=== PATIENT | female | born 1955 | race Caucasian/White ===

== ENCOUNTER → 2018-08-15 | Outpatient (CLI) | payer BC ==
[2018-08-15 19:27] LABS: Albumin 4.8 g/dL (3.80-4.90); Anion Gap 7.2 mmol/L (4.00-12.00); Calcium 9.9 mg/dL (8.7-10.3); Carbon Dioxide 26.8 mmol/L (21.6-31.8); Globulin 2.4 g/dL (2.1-3.7); LDL Cholesterol,Calculated 137.2 mg/dL (0.0-131.0); Potassium 4.9 mmol/L (3.5-5.5); Total Bilirubin 0.8 mg/dL (0.2-1.2); Total Protein 7.2 g/dL (6.2-8.2); VLDL Calculation 25.8 mg/dL (5.00-40.00)
[2018-08-15 19:38] LABS: Thyroid Peroxidase Antibodies <28.0 U/mL (0.0-60.0)
== END | disposition home or self-care (01) ==
LOC: LABWHC1 12:36
PROVIDERS: ATTEND Nurse Practitioner Family
DX: I10 Essential (primary) hypertension (principal); R63.5 Abnormal weight gain; M19.90 Unspecified osteoarthritis, unspecified site; M25.50 Pain in unspecified joint; G89.29 Other chronic pain
CPT/HCPCS: 36415; 80053; 80061; 84432; 84443; 84445; 86376

== ENCOUNTER → 2018-09-21 | Outpatient (CLI) | payer BC ==
--- NOTE | 2018-09-29 13:43 | MM ---
Reason for exam: screening (asymptomatic). Last mammogram was performed 2 years and 8 months ago. History: Patient is postmenopausal. Family history of breast cancer in mother. MG Screening Mammo w CAD Bilateral CC and MLO view(s) were taken. Prior study comparison: February 02, 2016, bilateral MG screening mammo w CAD. August 29, 2008, bilateral digital screening mammogram. There are scattered fibroglandular densities. There is a new left axillary tail nodularity, likely a lymph node. there is a central asymmetric density in the left CC view. ASSESSMENT: Incomplete: need additional imaging evaluation, BI-RAD 0 RECOMMENDATION: Special view mammogram of the left breast.
== END | disposition home or self-care (01) ==
LOC: RADMAMWWP 11:43
PROVIDERS: ATTEND Nurse Practitioner Family
DX: Z12.31 Encounter for screening mammogram for malignant neoplasm of breast (principal); I10 Essential (primary) hypertension; R63.5 Abnormal weight gain; M19.90 Unspecified osteoarthritis, unspecified site; M25.50 Pain in unspecified joint; G89.29 Other chronic pain
CPT/HCPCS: 77067

== ENCOUNTER → 2018-09-26 | Outpatient (CLI) | payer BC ==
--- NOTE | 2018-09-29 13:49 | MM ---
Reason for exam: additional evaluation requested from abnormal screening. Last mammogram was performed 2 years and 8 months ago. History: Patient is postmenopausal. Family history of breast cancer in mother. Physical Findings: Nurse did not find any significant physical abnormalities on exam. MG Work Up Mamm w CAD LT Spot compression CC, spot compression MLO, and LM view(s) were taken of the left breast. Prior study comparison: February 02, 2016, bilateral MG screening mammo w CAD. August 29, 2008, bilateral digital screening mammogram. The density in the left breast has resolved. Nodular density coinsides with a boil. These results were verbally communicated with the patient and result sheet given to the patient on 09/26/18. ASSESSMENT: Benign, BI-RAD 2 RECOMMENDATION: Return to routine screening mammogram schedule for both breasts.
== END | disposition home or self-care (01) ==
LOC: RADMAMWWP 13:38
PROVIDERS: ATTEND Family Medicine
DX: R92.8 Other abnormal and inconclusive findings on diagnostic imaging of breast (principal)
CPT/HCPCS: 77065

== ENCOUNTER → 2018-11-07 | Outpatient (CLI) | payer BC ==
--- NOTE | 2018-11-07 16:00 | US ---
EXAMINATION TYPE: US venous doppler duplex LE DATE OF EXAM: 11/07/2018 3:41 PM COMPARISON: NONE CLINICAL HISTORY: M79.89 LEFT LEG SWELLING. Patient had a pallet fall onto her left leg at work. Brui se on left calf SIDE PERFORMED: Bilateral TECHNIQUE: The lower extremity deep venous system is examined utilizing real time linear array sonog holden with graded compression, doppler sonography and color-flow sonography. VESSELS IMAGED: External Iliac Vein (EIV) Common Femoral Vein Deep Femoral Vein Greater Saphenous Vein * Femoral Vein Popliteal Vein Small Saphenous Vein * Proximal Calf Veins (* superficial vessels) Right Leg: Negative for DVT Left Leg: Negative for DVT Left leg at bruise area: hyperechoic area visualized measuring 9.2 x 2.6 cm Grayscale, color doppler, spectral doppler imaging performed of the deep veins of the bilateral lowe r extremities. There is normal flow, compressibility, vascular waveforms. IMPRESSION: No ultrasound evidence for acute DVT in either lower extremity. Towards end of study ther e is moderate to large sized subcutaneous hematoma at area of bruise in the left calf.
== END | disposition home or self-care (01) ==
LOC: RADUSWWP 15:06
PROVIDERS: ATTEND Internal Medicine Rheumatology
DX: S80.12XA Contusion of left lower leg, initial encounter (principal)
CPT/HCPCS: 93970

== ENCOUNTER → 2022-09-14 | Outpatient (CLI) | payer MEDICARE ==
--- NOTE | 2022-09-15 07:48 | BD ---
EXAMINATION TYPE: Axial Bone Density DATE OF EXAM: 09/14/2022 CLINICAL HISTORY: 67 year old Female. ICD-10 CODE: M81.0 AGE-RELATED OSTEOPOROSIS Height: 64 Weight: 218.5 FRAX RISK QUESTIONS: Alcohol (3 or more units per day): no Family History (Parent hip fracture): no Glucocorticoids (More than 3mos): no (Ex: prednisone, prednisolone, methylprednisolone, dexamethasone, and hydrocortisone). History of Fracture in Adulthood: yes Secondary Osteoporosis: 1. Type 1 Diabetes: no 2. Hyperthyroidism: no 3. Menopause before 45: no 4. Malnutrition: no 5. Chronic liver disease: no Rheumatoid Arthritis: no Current Tobacco Use: no RISK FACTORS HISTORY OF: Spine Fracture: c-spine When: age 17 Surgery to Spine/Hip(right/left)/Wrist (right/left): no Family History of Osteoporosis: no Active: yes Diet low in dairy products/other sources of calcium: yes Postmenopausal woman: yes MEDICATIONS: Additional History: EXAM MEASUREMENTS: Bone mineral densitometry was performed using the Porphyrio System. Bone mineral density as measured about the Lumbar spine is: ----- L1-L4(G/cm2): 0.872 T Score Values are as follows: ----- L1: -2.4 ----- L2: -2.9 ----- L3: -2.9 ----- L4: -2.1 ----- L1-L4: -2.6 Bone mineral density has: decreased -17.4 % since study of: 02.12.2010 Bone mineral density about the R hip (g/cm2): 0.777 Bone mineral density about the L hip (g/cm2): 0.786 T Score values are as follows: -----R Neck: -1.9 -----L Neck: -1.8 -----R Total: -2.4 -----L Total: -2.3 Bone mineral density has: decreased -24.2% since study of: 02.12.2010 FRAX%s: The graph provided illustrates a 15.6% chance for a major osteoporotic fx and a 2.1% chance f or the hips probability for fx in 10 years time. IMPRESSION: Osteoporosis (T Score less than -2.5). There is increased fracture risk and therapy is usually indicated based on age. Re-Screen 1-2 years. NOTE: T-SCORE=SD OF THE YOUNG ADULT MEAN.
--- NOTE | 2022-09-15 20:09 | MM ---
Reason for Exam: Screening (asymptomatic). Last mammogram was performed 4 year(s) and 0 month(s) ago. Patient History: Menarche at age 14. First Full-Term at age 21. Postmenopausal. Mother had breast cancer. Risk Values: Melonie 5 year model risk: 3.2%. NCI Lifetime model risk: 11.3%. Prior Study Comparison: 02/02/2016 Bilateral Screening Mammogram, [facility]. 09/21/2018 Bilateral Screening Mammogram, [facility]. 09/26/2018 Left Diagnostic Mammogram, [facility]. Tissue Density: There are scattered fibroglandular densities. Findings: Analyzed By CAD. Chronic nodularity anterior right breast. There is no suspicious group of microcalcifications or new suspicious mass in either breast. Overall Assessment: Benign, BI-RAD 2 Management: Screening Mammogram of both breasts in 1 year. 1. Patient should continue monthly self breast exams. 2. A clinical breast exam by your physician is recommended on an annual basis. 3. This exam should not preclude additional follow-up of suspicious palpable abnormalities. Electronically signed and approved by: Ally Parr M.D. Radiologist
== END | disposition home or self-care (01) ==
LOC: RADMAMWWP 16:01
PROVIDERS: ATTEND Family Medicine
DX: Z12.31 Encounter for screening mammogram for malignant neoplasm of breast (principal); M81.0 Age-related osteoporosis without current pathological fracture; M85.89 Other specified disorders of bone density and structure, multiple sites; Z78.0 Asymptomatic menopausal state; Z80.3 Family history of malignant neoplasm of breast
CPT/HCPCS: 77063; 77067; 77080